=== PATIENT | male | born 1985 | race African-American/Black ===

== ENCOUNTER 2018-02-26 19:19 | Emergency (ER) | payer SELFPAY ==
[~2018-02-26] VITALS: Ht 165.1 cm; Wt 65.9 kg
[2018-02-26 19:56] VITALS: BP 160/100; PULSE 74; RESP 18; TEMP 99; O2SAT 100
--- NOTE | 2018-02-26 20:12 | PD ---
HPI Chief Complaint: Complaint Time Seen by Provider: 20:05 Travel History International Travel<30 days: No Contact w/Intl Traveler<30days: No Traveled to known affect area: No History of Present Illness HPI 32-year-old -[place] male presents emergency department with reports of passing of blood clot with urination earlier today. He states he had no pain or discharge. He states he continues to feel fine without abdominal pain, flank pain, fever, chills, or testicular pain. Patient states he had sex last evening. He also states he probably does not drink enough water, and tends to hold his urine longer than he should. He states no difficulty initiating his stream. He has no known drug allergies. [facility] Social History Alcohol Use: Yes Tobacco Use: Yes Substance Use: No Allergies-Medications (Allergen,Severity, Reaction): Coded Allergies: No Known Allergies (Unverified , 02/26/18) Review of Systems Except as stated in HPI: all other systems reviewed are Neg General / Constitutional: No: Fever Eyes: No: Visual changes HENT: No: Headaches Cardiovascular: No: Chest Pain or Discomfort Respiratory: No: Shortness of Breath Gastrointestinal: No: Abdominal Pain Genitourinary: Positive: Hematuria, No: Urgency, Frequency, Dysuria, Decreased Urinary Output, Dribbling, Flank Pain, Discharge Musculoskeletal: No: Pain Skin: No Rash Neurologic: No: Weakness Psychiatric: No: Depression Endocrine: No: Polydipsia Hematologic/Lymphatic: No: Easy Bruising Physical Exam Narrative GENERAL: Patient appears in no acute distress SKIN: Warm and dry. Normal color. Normal turgor HEAD: Atraumatic. Normocephalic. EYES: Pupils equal and round. No scleral icterus. No injection or drainage. ENT: No nasal bleeding or discharge. Mucous membranes pink and moist. Pharynx is clear. Airways patent NECK: Trachea midline. No JVD. CARDIOVASCULAR: Regular rate and rhythm. RESPIRATORY: No accessory muscle use. Clear to auscultation. Breath sounds equal bilaterally. GASTROINTESTINAL: Abdomen soft, non-tender, nondistended. Hepatic and splenic margins not palpable. No CVA tenderness per MUSCULOSKELETAL: Extremities without clubbing, cyanosis, or edema. No obvious deformities. NEUROLOGICAL: Awake and alert. No obvious cranial nerve deficits. Motor grossly within normal limits. Five out of 5 muscle strength in the arms and legs. Normal speech. PSYCHIATRIC: Appropriate mood and affect; insight and judgment normal. Data Data Last Documented VS Vital Signs Date Time Temp Pulse Resp B/P (MAP) Pulse Ox O2 Delivery O2 Flow Rate FiO2 02/26/18 19:56 99.0 74 18 160/100 (120) 100 Orders Orders Urinalysis - C+S If Indicated (02/26/18 20:08) Sodium Chloride 0.9% Flush (Ns Flush) (02/26/18 20:15) Labs Laboratory Tests Test 02/26/18 20:10 Urine Color LIGHT-YELLOW Urine Turbidity CLEAR Urine pH 7.0 Urine Specific [place] 1.003 Urine Protein NEG mg/dL Urine Glucose (UA) NEG mg/dL Urine Ketones NEG mg/dL Urine Occult Blood MOD Urine Nitrite NEG Urine Bilirubin NEG Urine Urobilinogen LESS THAN 2.0 MG/DL Urine Leukocyte Esterase NEG Urine RBC 12 /hpf Urine WBC 3 /hpf Urine Bacteria FEW /hpf Microscopic Urinalysis Comment CULT NOT INDICATED MDM Medical Decision Making Medical Screen Exam Complete: Yes Emergency Medical Condition: Yes Differential Diagnosis Painless hematuria. Urethritis. UTI. Narrative Course Urinalysis is obtained and sent to the lab. Urinalysis shows moderate hemoglobin, with 12 RBCs per high-power field. It did not show signs of infection, and culture was not placed Patient is felt to have pain with hematuria. Recommend close follow-up with a local primary care physician, and return if symptoms recur or worsen. Further medical treatment is not felt warranted at this time Diagnosis Primary Impression: Hematuria Qualified Codes: R31.21 - Asymptomatic microscopic hematuria Referrals: [facility] Patient Instructions: General Instructions, Hematuria (ED) Additional Instructions: Urinalysis shows moderate hemoglobin, with 12 RBCs per high-power field. It did not show signs of infection, and culture was not placed Patient is felt to have pain with hematuria. Recommend close follow-up with a local primary care physician, and return if symptoms recur or worsen. Further medical treatment is not felt warranted at this time Med/Other Pt SpecificInfo: No Meds Exist/No RX given Disposition: 01 DISCHARGE HOME Condition: Stable Alan [place] Feb 26, 2018 20:12
[2018-02-26] MEDS ORDERED: SODIUM CHLORIDE 0.9% FLUSH 10 ML FLUSH IVF PRN (20:15)
[2018-02-26 20:39] LABS: BACTERIA, URINE FEW /hpf; BILIRUBIN, URINE NEG (NEG); BLOOD, URINE MOD (NEG); GLUCOSE,URINE NEG (NEG); KETONE, URINE NEG (NEG); NITRITE,URINE NEG (NEG); URINE COLOR LIGHT-YELLOW (YELLW/STRAW); URINE LEUKOCYTE ESTERASE NEG (NEG)
== END 2018-02-26 21:05 | disposition home or self-care (01) ==
LOC: NEPK 19:19
DX: R31.21 Asymptomatic microscopic hematuria (principal); Z72.0 Tobacco use
CPT/HCPCS: 81001; 99283